=== PATIENT | female | born 2000 | race Asian ===

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

== ENCOUNTER 2020-09-03 23:50 | Emergency (ER) | payer OTHER ==
[~2020-09-03] VITALS: Ht 162.6 cm; Wt 52.2 kg
[2020-09-04 00:02] VITALS: BP 108/67
--- NOTE | 2020-09-04 00:06 | NUR ---
PT AMBUALTED TO RESTROOM TO PROVIDE UA SAMPLE.
--- NOTE | 2020-09-04 00:45 | NUR ---
LAMONTE HOPSON AT BEDSIDE EVALUATING PT
--- NOTE | 2020-09-04 00:45 | NUR ---
19 YO F BIB SELF WITH C/C OF LETHARGY X2WKS. PT STATES SHE HAS SOB AT TIME, DENIES CHILLS, NO FEVER, N/V AT TIMES, AND NO COUGH OR PHELGM. PT STATES SHE HAD COVID EXPOSURE 1 WK AGO. LUNG SOUNDS CLEAR THROUGHOUT, EQUAL RISE AND FALL OF CHEST WALL, AND UNLABORED BREATHING. PT IS ON INSPECTOR HANDBAG FRAMES, PULSE OX, PLACED IN A GOWN AND GIVEN A WARM BLANKET. BED LOCKED IN LOWEST POSITION, SIDE RAILS X2. HX: DENIES RX: DENIES NKA
[2020-09-04] MEDS ORDERED: KETOROLAC 30 MG/ML VIAL IVP ONE (00:50)
[2020-09-04] MEDS ORDERED: ONDANSETRON 4 MG/2 ML VIAL IVP ONE (00:50)
[2020-09-04] MEDS ORDERED: NACL 0.9% 1,000 ML IV ONE (00:50)
--- NOTE | 2020-09-04 00:54 | NUR ---
LAB AT BEDSIDE.
[2020-09-04 01:03] LABS: BASOPHILS # (AUTO) 0.1 K/uL (0.00-0.22); BASOPHILS % (AUTO) 0.6 % (0.0-2.0); EOSINOPHILS # (AUTO) 0.1 K/uL (0-0.4); EOSINOPHILS % (AUTO) 1.1 % (0.0-4.0); HEMATOCRIT 39.2 % (36-48); HEMOGLOBIN 12.9 g/dL (12.0-16.0); LYMPHOCYTES # (AUTO) 2.5 K/uL (2.5-16.5); LYMPHOCYTES % (AUTO) 25.1 % (20.5-51.1); MEAN CORPUSCULAR HEMOGLOBIN 30 pg (27-31); MEAN CORPUSCULAR HGB CONC 33 g/dL (33-37); MEAN CORPUSCULAR VOLUME 89.5 fL (80-94); MONOCYTES # (AUTO) 0.8 K/uL (0.8-1.0); MONOCYTES % (AUTO) 8.2 % (1.7-9.3); NEUTROPHILS # (AUTO) 6.5 K/uL (1.8-7.7); PLATELET COUNT (AUTO) 411 K/uL (140-450); RED BLOOD CELL COUNT(AUTO) 4.38 MIL/uL (4.20-5.40); WHITE BLOOD COUNT (AUTO) 10.1 K/uL (4.5-11.0)
[2020-09-04 01:18] LABS: ALBUMIN 3.8 g/dL (3.4-5.0); ANION GAP 10.6 (8-16); CARBON DIOXIDE 28.2 mmol/L (21-32); CREATININE 1.3 mg/dL (0.6-1.3); POTASSIUM 3.8 mmol/L (3.5-5.1); TOTAL BILIRUBIN 0.3 mg/dL (0.0-1.0)
--- NOTE | 2020-09-04 01:20 | NUR ---
PT TAKEN TO RAD VIA WHEELCHAIR
--- NOTE | 2020-09-04 01:21 | NUR ---
TRAE COLLECTED AND TAKEN TO LAB.
--- NOTE | 2020-09-04 01:36 | NUR ---
BACK FROM RAD. PLACED ON HRIS SPECIALIST, PULSE OX, AND IV FLUID CONT. BED LOCKED IN LOWEST POSITION, SIDE RAILS X2.
--- NOTE | 2020-09-04 02:49 | NUR ---
PT ASKED TO TURN THE LIGHTS OUT SO SHE CAN. PT MADE COMFORTABLE. 0/10 PAIN, NO FURTHER PAIN MANAGEMENT NEEDED AT THIS TIME. BED LOCKED IN LOWEST POSITION, PT ON COATER OPERATOR AND PULSE OX, AND SIDE RAILS X2.
[2020-09-04 03:02] VITALS: BP 108/74
== END 2020-09-04 03:02 | disposition home or self-care (01) ==
LOC: MED 23:50
DX: R53.1 Weakness (principal); Z20.828 Contact with and (suspected) exposure to other viral communicable diseases
CPT/HCPCS: 36415; 74022; 80053; 81002; 81025; 85025; 87426; 96361; 96374; 96375; 99284; J1885; J2405; J7030

== ENCOUNTER 2020-10-05 02:45 | Emergency (ER) | payer OTHER ==
--- NOTE | 2020-10-05 03:05 | NUR ---
PATIENT LEFT WITHOUT BEING SEEN BY DR. GARCIA. NO FURTHER CARE PROVIDED FOR PATIENT.
== END 2020-10-05 03:05 | disposition home or self-care (01) ==
LOC: MED 02:45
DX: Z53.21 Procedure and treatment not carried out due to patient leaving prior to being seen by health care provider (principal)
CPT/HCPCS: 99281

== ENCOUNTER 2021-05-03 01:05 | Emergency (ER) | payer OTHER ==
[~2021-05-03] VITALS: Ht 160 cm; Wt 51.3 kg
[2021-05-03 01:11] VITALS: BP 117/71
== END 2021-05-03 01:59 | disposition left against medical advice (07) ==
LOC: MED 01:05
DX: Z20.822 Contact with and (suspected) exposure to COVID-19 (principal); Z53.21 Procedure and treatment not carried out due to patient leaving prior to being seen by health care provider
CPT/HCPCS: 87426; U0003

== ENCOUNTER 2021-12-07 21:28 | Emergency (ER) | payer OTHER ==
[~2021-12-07] VITALS: Ht 160 cm; Wt 54.4 kg
[2021-12-07 21:50] VITALS: BP 108/63
--- NOTE | 2021-12-07 21:50 | NUR ---
TO BED AMBULATORY
--- NOTE | 2021-12-07 22:06 | NUR ---
21 Y/O FEMALE BIB SELF, C/O PRODUCTIVE COUGH WITH GREEN PHLEGM, ITCHY THROAT, RUNNY NOSE, AND VOICE CHANGE FOR APPROXIMATELY 1WK. PT STATES MONDAY SHE LOST HER VOICE, HAS CP WHEN HAVING A COUGHING FIT, AND FATIGUE. DENIES N/V/D; SKIN IS PINK/WARM/DRY; AAOX4 WITH EVEN AND STEADY GAIT; HR EVEN AND REGULAR; PT DENIES ANY FEVER; VSS; PATIENT POSITIONED FOR COMFORT; HOB ELEVATED; BEDRAILS UP X1; BED DOWN. ER MD MADE AWARE OF PT STATUS. DENIES MEDICAL HX, ALLERGIES, AND MEDS.
--- NOTE | 2021-12-07 22:06 | NUR ---
xray at bedside
[2021-12-07] MEDS ORDERED: ACETAMINOPHEN 325 MG TAB PO ONE (22:35)
[2021-12-07] MEDS ORDERED: BENZONATATE 100 MG CAPLF PO SCH (22:35)
[2021-12-07] MEDS ORDERED: IBUPROFEN 400 MG TAB PO ONE (22:35)
[2021-12-07] MEDS ORDERED: AMOXIL/CLAVULANATE 875/125 MG 1 TAB PO ONE (22:40)
[2021-12-07] MEDS ORDERED: AZITHROMYCIN 250 MG TAB PO ONE (22:40)
--- NOTE | 2021-12-07 22:40 | NUR ---
Dr. Cuevas examining patient.
[2021-12-07] MEDS ORDERED: AZIT250T4 PO (22:44)
[2021-12-07] MEDS ORDERED: BENZ200C4 PO (22:44)
[2021-12-07] MEDS ORDERED: AMOX-1000 PO (22:44)
[2021-12-07] MEDS ORDERED: PROM118S5 PO (22:44)
--- NOTE | 2021-12-07 22:53 | NUR ---
COLLECTED COVID/NOVEL AND WALKED TO LAB
--- NOTE | 2021-12-07 23:15 | NUR ---
Patient discharged with v/s stable. Written and verbal after care instructions given and explained. Patient alert, oriented and verbalized understanding of instructions. Ambulatory with steady gait. All questions addressed prior to discharge. ID band removed. Patient advised to follow up with PMD. Rx of Amoxicillin, Azithromycin, Benzonatate, and Promethazine/Dextromethorphan given. Patient educated on indication of medication including possible reaction and side effects. Opportunity to ask questions provided and answered. VSS, A/OX4, AMBULATORY, UNLABORED BREATHING, AND CALM DEMEANOR. Work note given.
[2021-12-07 23:27] VITALS: BP 108/63
== END 2021-12-07 23:15 | disposition home or self-care (01) ==
LOC: MED 21:28
DX: J18.9 Pneumonia, unspecified organism (principal); Z20.822 Contact with and (suspected) exposure to COVID-19; Z79.899 Other long term (current) drug therapy; Z79.2 Long term (current) use of antibiotics
CPT/HCPCS: 71045; 99284; U0003

== ENCOUNTER 2022-05-31 02:15 | Emergency (ER) | payer OTHER ==
[~2022-05-31] VITALS: Ht 160 cm; Wt 52.2 kg
[~2022-05-31 02:15] MED LIST: AMOX-1000 PO; AZIT250T4 PO; BENZ200C4 PO; PROM118S5 PO
[2022-05-31 02:28] VITALS: BP 100/60
--- NOTE | 2022-05-31 02:35 | NUR ---
COVID-19 (rapid and PCR) swabs collected and sent to lab.
--- NOTE | 2022-05-31 02:42 | NUR ---
Dr. Yi examining patient.
[2022-05-31] MEDS ORDERED: PRED20TA6 PO (02:56)
[2022-05-31] MEDS ORDERED: ALBU0.0912 IH (02:56)
[2022-05-31 02:59] VITALS: BP 100/60
--- NOTE | 2022-05-31 02:59 | NUR ---
Patient discharged with v/s stable. Written and verbal after care instructions given and explained. Patient alert, oriented and verbalized understanding of instructions. Carried with steady gait. All questions addressed prior to discharge. ID band removed. Patient advised to follow up with PMD. Rx of ALBUTEROL AND PREDNISONE given. Patient educated on indication of medication including possible reaction and side effects. Opportunity to ask questions provided and answered.
--- NOTE | 2022-05-31 11:20 | NUR ---
LATE ENTRY. RECEIVED +COVID PCR. DR COLEMAN SIGNED DISCREPANCY LOG. TREATMENT APPROPRIATE. FORM WALKED TO INFECTION CONTROL AND PLACED IN BINDER.
== END 2022-05-31 02:59 | disposition home or self-care (01) ==
LOC: MED 02:15
DX: U07.1 COVID-19 (principal); Z79.899 Other long term (current) drug therapy
CPT/HCPCS: 87426; 87635; 99283; C9803

== ENCOUNTER 2022-10-06 21:28 | Emergency (ER) | payer OTHER ==
[~2022-10-06] VITALS: Ht 160 cm; Wt 54.4 kg
[~2022-10-06 21:28] MED LIST changes: +ALBU0.0912 IH; +PRED20TA6 PO
[2022-10-06 21:35] VITALS: BP 114/67
--- NOTE | 2022-10-06 21:35 | NUR ---
TO BED AMBULATORY
--- NOTE | 2022-10-06 21:52 | NUR ---
IV ESTABLISHED, AWAITING ERMD TO PLACE MEDICATION ORDERS. PT IN POSITION OF COMFORT. SEE INITIAL ASSESSMENT
[2022-10-06] MEDS ORDERED: FAMOTIDINE 20 MG/2 ML VIAL IVP ONE (22:10)
[2022-10-06] MEDS ORDERED: diphenhydrAMINE 50 MG/ML VIAL IVP ONE (22:10)
[2022-10-06] MEDS ORDERED: NACL 0.9% 1,000 ML IV ONE (22:10)
[2022-10-06] MEDS ORDERED: DEXAMETHASONE 10 MG/ML VIAL IVP ONE (22:10)
--- NOTE | 2022-10-06 23:30 | NUR ---
IMPROVEMENT NOTED TO RASH ON FACE. ERMD AWARE.
[2022-10-07] MEDS ORDERED: DEC4 PO (00:09)
[2022-10-07] MEDS ORDERED: HYD1C TP (00:10)
[2022-10-07 00:16] VITALS: BP 114/67
--- NOTE | 2022-10-07 00:16 | NUR ---
Patient discharged with v/s stable. Written and verbal after care instructions given and explained. Patient alert, oriented and verbalized understanding of instructions. Ambulatory with steady gait. All questions addressed prior to discharge. ID band removed. Patient advised to follow up with PMD. Rx of DEXAMEHTASONE, HYDROCORTISONE given. Patient educated on indication of medication including possible reaction and side effects. Opportunity to ask questions provided and answered.
== END 2022-10-07 00:16 | disposition home or self-care (01) ==
LOC: MED 21:28
DX: L23.9 Allergic contact dermatitis, unspecified cause (principal)
CPT/HCPCS: 96361; 96374; 96375; 99284; J1100; J1200; J3490; J7030

== ENCOUNTER 2023-07-04 01:15 | Emergency (ER) | payer OTHER ==
[~2023-07-04] VITALS: Ht 160 cm; Wt 52.2 kg
[~2023-07-04 01:15] MED LIST changes: +DEC4 PO; +HYD1C TP
[2023-07-04 01:21] VITALS: BP 115/79; PULSE 77; RESP 18; TEMP 98; O2SAT 98
[2023-07-04] MEDS ORDERED: ONDANSETRON 4 MG/2 ML VIAL IVP ONE (01:25)
[2023-07-04 01:30] VITALS: TEMP 98
[2023-07-04 01:41] LABS: APPEARANCE,URINE CLEAR (CLEAR); BILIRUBIN,URINE NEGATIVE (NEGATIVE); BLOOD, URINE NEGATIVE (NEGATIVE); COLOR,URINE YELLOW (YELLOW); LEUKOCYTE ESTERASE ,URINE 1+ (NEGATIVE); NITRITE, URINE NEGATIVE (NEGATIVE); PH,URINE 6.5 (5.0-9.0); PROTEIN,URINE NEGATIVE (NEGATIVE); UGLUCOSE NEGATIVE (NEGATIVE); UROBILINOGEN,URINE 0.2 EU/dL (0.2 - 1)
[2023-07-04 01:45] LABS: BASOPHILS # (AUTO) 0.1 K/uL (0.00-0.22); EOSINOPHILS # (AUTO) 0.2 K/uL (0-0.4); EOSINOPHILS % (AUTO) 2.1 % (0.0-4.0); HEMOGLOBIN 13.3 g/dL (12.0-16.0); LYMPHOCYTES # (AUTO) 3.5 K/uL (2.5-16.5); LYMPHOCYTES % (AUTO) 41.8 % (20.5-51.1); MEAN CORPUSCULAR HEMOGLOBIN 30 pg (27-31); MEAN CORPUSCULAR HGB CONC 33 g/dL (33-37); MEAN CORPUSCULAR VOLUME 91.1 fL (80-94); MONOCYTES # (AUTO) 0.7 K/uL (0.8-1.0); MONOCYTES % (AUTO) 8.4 % (1.7-9.3); NEUTROPHILS # (AUTO) 3.9 K/uL (1.8-7.7); NEUTROPHILS % (AUTO) 46.7 % (42.2-75.2); PLATELET COUNT (AUTO) 397 K/uL (140-450); RED BLOOD CELL COUNT(AUTO) 4.39 MIL/uL (4.20-5.40); RED CELL DISTRIBUTION WIDTH 13.1 % (11.6-13.7); WHITE BLOOD COUNT (AUTO) 8.4 K/uL (4.8-10.8)
[2023-07-04 01:47] LABS: BACTERIA,URINE >30 (MANY) /HPF (None Seen); MUCUS,URINE 1+ /LPF (None Seen); RBC,URINE 0-5 /HPF (0-5); SQUAMOUS EPITHELIAL CELL,UR 4-10 (MOD) /LPF (0-3 (FEW))
[2023-07-04 01:56] LABS: ALBUMIN 3.7 g/dL (3.4-5.0); ANION GAP 10.4 (8-16); CALCIUM 8.4 mg/dL (8.5-10.1); CARBON DIOXIDE 28.2 mmol/L (21-32); CREATININE 0.9 mg/dL (0.6-1.3); POTASSIUM 3.6 mmol/L (3.5-5.1); TOTAL BILIRUBIN 0.4 mg/dL (0.0-1.0); TOTAL PROTEIN, SERUM 7.6 g/dL (6.4-8.2)
[2023-07-04] MEDS ORDERED: CEPH-588 PO (02:23)
[2023-07-04] MEDS ORDERED: ONDA-188 PO (02:23)
[2023-07-04 02:30] VITALS: BP 103/68; PULSE 70; RESP 18; O2SAT 98
== END 2023-07-04 02:30 | disposition home or self-care (01) ==
LOC: MED 01:15
DX: R11.2 Nausea with vomiting, unspecified (principal); R19.7 Diarrhea, unspecified; Z79.899 Other long term (current) drug therapy
CPT/HCPCS: 36415; 80053; 81001; 81025; 83690; 85025; 87086; 96374; 99283; J2405